=== PATIENT | male | born 1975 | race Caucasian/White ===

== ENCOUNTER 2016-10-08 15:53 | Emergency (ER) | payer BC ==
[2016-10-08] MEDS ORDERED: BACIGUENT PACKET TP ONE (16:00)
[2016-10-08] MEDS ORDERED: XYLOCAINE 1% HCL 20 ML MDV IJ ONE (16:00)
[2016-10-08] MEDS ORDERED: Adacel Vial IM ONE ×2 (16:04→16:05)
[2016-10-08] MEDS ORDERED: XYLOCAINE 1% HCL 20 ML MDV ONE (16:05)
[2016-10-08] MEDS ORDERED: BACIGUENT PACKET ONE (16:05)
--- NOTE | 2016-10-08 16:28 | ERPHSYRPT ---
- History of Present Illness Time Seen by Provider: 10/08/16 15:59 Source: patient, family Patient Subjective Stated Complaint: Pt was using a nail gun and a nail went through his left index finger. Pt states he needs a tetanus shot. Triage Nursing Assessment: Pt alert and oriented x3. skin pink warm and dry. afebrile. small nail in tip of left index finger. radial pulse present and regular. cap refill <3 sec Physician History: CC: nail in finger Hx: 41 y/o healthy male patient was building baby changing table. Using staple gun. Metal nail went into left distal index finger. Hurt too much to pull out. Needs tetanus vaccine. No other injuries. No hx of DM. Occurred: just prior to arrival Severity of Pain-Max: moderate Extremities Pain Location: 2nd finger: left Allergies/Adverse Reactions: No Known Drug Allergies Allergy (Unverified 10/08/16 15:57) Hx Tetanus, Diphtheria Vaccination/Date Given: No Hx Influenza Vaccination/Date Given: No Hx Pneumococcal Vaccination/Date Given: No - Review of Systems Constitutional: No Symptoms Neurological: No Focal Weakness, No Parasthesia - Past Medical History Pertinent Past Medical History: No - Past Surgical History Past Surgical History: Yes Musculoskeletal: Orthopedic Surgery Other Surgical History: tubes in ears - Social History Smoking Status: Never smoker Exposure to second hand smoke: No Drug Use: none Patient Lives Alone: No (, boy baby on the way, works [employer]) - Nursing Vital Signs Nursing Vital Signs: Initial Vital Signs Temperature 98.1 F Temperature Source Oral Pulse Rate 73 Respiratory Rate 16 Blood Pressure [Right Arm] 147/99 Pain Intensity 2 - Physical Exam General Appearance: alert Eyes, Ears, Nose, Throat Exam: moist mucous membranes Cardiovascular/Respiratory Exam: regular rate/rhythm Neuro/Tendon Exam: normal sensation, normal motor functions Mental Status Exam: alert, oriented x 3, cooperative Skin Exam: warm, dry SpO2 Interpretation: normal SpO2: 98 Oxygen Delivery: Room Air Comments: curved metal nail embedded in left distal index finger. Good cap refill. Good ROM. Procedures - Additional Procedures Progress: 3ml 1% plain lidocaine used for left index finger digital block. Cleansed with betadine. Removed nail in toto with hemastats easily. No residual on xray. Wound instr given. Adacel updated. - Course Nursing assessment & vital signs reviewed: Yes Ordered Tests: Active Orders 24 hr Category Date Time Status Wound Care STAT Care 10/08/16 15:59 Active FINGER(S) Stat Exams 10/08/16 16:00 Ordered Medication Summary Discontinued Medications Generic Name Dose Route Start Last Admin Trade Name Ross PRN Reason Stop Dose Admin Bacitracin 0.9 gm 10/08/16 16:00 10/08/16 16:17 Baciguent Packet TP 10/08/16 16:01 0.9 gm STAT ONE Administration Bacitracin Confirm 10/08/16 16:05 Baciguent Packet Administered 10/08/16 16:06 Dose 1 gm .ROUTE .STK-MED ONE Diphtheria/Tetanus/Acell Pertussis 0.5 ml 10/08/16 16:04 Adacel Vial IM 10/08/16 16:05 .ONCE ONE Diphtheria/Tetanus/Acell Pertussis Confirm 10/08/16 16:05 Adacel Vial Administered 10/08/16 16:06 Dose 0.5 ml IM .STK-MED ONE Lidocaine HCl 5 ml 10/08/16 16:00 10/08/16 16:17 Xylocaine 1% Hcl 20 Ml Mdv IJ 10/08/16 16:01 5 ml STAT ONE Administration Lidocaine HCl Confirm 10/08/16 16:05 Xylocaine 1% Hcl 20 Ml Mdv Administered 10/08/16 16:06 Dose 5 ml .ROUTE .STK-MED ONE - Departure Time of Disposition: 16:26 Departure Disposition: Home Clinical Impression: Foreign body of left index finger Condition: Stable Critical Care Time: No Referrals: DOCTOR,NO FAMILY [Primary Care Provider] - Instructions: Removal of Foreign Body From Skin Additional Instructions: LACERATION CARE 1. Do not use peroxide, merthiolate, alcohol, or betadine. 2. Keep wound clean and dry. 3. Change dressing if it becomes wet or soiled. 4. If you must work, wear protective covering. 5. You may return to the emergency department or see your family physician for suture removal. 6. See your family physician or return to the emergency department for any of the following signs or symptoms: A. Redness B. Swelling C. Discolored drainage D. Red streaks E. Elevated temperature F. Other signs of infection Rx keflex. Tylenol or ibuprofen if needed for pain. Prescriptions: Cephalexin Mh 500 mg [Keflex 500 mg] 1 cap PO QID #20 capsule
[2016-10-08 16:58] VITALS: BP 144/86; PULSE 65; O2SAT 99
--- NOTE | 2016-10-08 23:06 | XRAY ---
Indication: Foreign body. Comparison: None 2 projections of the left second digit demonstrates distal soft tissue metallic hook foreign body without bony or articular abnormalities. Follow-up 2 views demonstrates successful foreign body removal.
== END 2016-10-08 16:58 | disposition home or self-care (01) ==
LOC: ED 15:53
DX: S61.241A Puncture wound with foreign body of left index finger without damage to nail, initial encounter (principal); W29.4XXA Contact with nail gun, initial encounter
CPT/HCPCS: 73140; 90471; 90715; 99283; A9270-GY

== ENCOUNTER 2016-12-31 18:37 | Emergency (ER) | payer BC ==
[2016-12-31] MEDS ORDERED: Sodium Chloride 0.9% 1000 ML 1,000 ML ONE ×2 (18:50→19:50)
[2016-12-31] MEDS ORDERED: Sodium Chloride 0.9% 1000 ML 1,000 ML IV STA ×2 (18:53→19:48)
--- NOTE | 2016-12-31 18:53 | ERPHSYRPT ---
- History of Present Illness Time Seen by Provider: 12/31/16 18:49 Historian: patient, family Exam Limitations: no limitations Patient Subjective Stated Complaint: heat exhaustion Triage Nursing Assessment: racing continuous for 2 hours. quit couple of hours ago and when he got off he was weak and leg cramps. skin cool. no pain. 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 Timing/Duration: today, hour(s) Activities at Onset: activity Quality: other (no pain) Abdominal Pain Onset Location: other (no pain) Pain Radiation: other (no pain) Severity of Pain-Max: none Severity of Pain-Current: none Modifying Factors: Improves With: nothing Associated Symptoms: nausea, vomiting Previous symptoms: no prior history Allergies/Adverse Reactions: No Known Drug Allergies Allergy (Unverified 12/31/16 18:42) Home Medications: No Home Meds 0 b PO 5XD 12/31/16 [History] Hx Tetanus, Diphtheria Vaccination/Date Given: Yes Hx Influenza Vaccination/Date Given: Yes Hx Pneumococcal Vaccination/Date Given: No Immunizations Up to Date: Yes - Review of Systems Constitutional: Weakness, No Fever, No Chills Eyes: No Symptoms Ears, Nose, & Throat: No Symptoms Respiratory: No Cough, No Dyspnea Cardiac: No Chest Pain, No Edema, No Syncope Abdominal/Gastrointestinal: Nausea, Vomiting, No Abdominal Pain, No Diarrhea Genitourinary Symptoms: No Dysuria Musculoskeletal: No Back Pain, No Neck Pain Skin: No Rash Neurological: No Dizziness, No Focal Weakness, No Sensory Changes Psychological: No Symptoms Endocrine: No Symptoms All Other Systems: Reviewed and Negative - Past Medical History Pertinent Past Medical History: No - Past Surgical History Past Surgical History: Yes Musculoskeletal: Orthopedic Surgery Other Surgical History: tubes in ears - Social History Smoking Status: Never smoker Exposure to second hand smoke: No Drug Use: none Patient Lives Alone: No - Nursing Vital Signs Nursing Vital Signs: Initial Vital Signs Temperature 97.4 F Temperature Source Oral Pulse Rate 89 Respiratory Rate 16 Blood Pressure [Right Arm] 132/83 Pain Intensity 0 - Physical Exam General Appearance: no apparent distress, alert Eye Exam: PERRL/EOMI, eyes nml inspection Ears, Nose, Throat Exam: normal ENT inspection, pharynx normal, moist mucous membranes Neck Exam: normal inspection, non-tender, supple, full range of motion Respiratory Exam: normal breath sounds, lungs clear, No respiratory distress Cardiovascular Exam: regular rate/rhythm, normal heart sounds Gastrointestinal/Abdomen Exam: soft, No tenderness, No mass Rectal Exam: deferred Back Exam: normal inspection, normal range of motion, No CVA tenderness, No vertebral tenderness Extremity Exam: normal inspection, normal range of motion, pelvis stable Neurologic Exam: alert, oriented x 3, cooperative, normal mood/affect, nml cerebellar function, sensation nml, No motor deficits Skin Exam: normal color, warm, dry - Course Nursing assessment & vital signs reviewed: Yes Ordered Tests: Active Orders 24 hr Category Date Time Status IV Insertion STAT Care 12/31/16 18:48 Active IV Insertion STAT Care 12/31/16 18:53 Active PO Fluid Challenge STAT Care 12/31/16 18:57 Active CBC W DIFF Stat Lab 12/31/16 18:58 Completed CK-Creatinine Phosphokinase Stat Lab 12/31/16 18:58 Completed CMP Stat Lab 12/31/16 18:58 Completed Lactic Acid Stat Lab 12/31/16 19:05 Completed Medication Summary Discontinued Medications Generic Name Dose Route Start Last Admin Trade Name Freq PRN Reason Stop Dose Admin Sodium Chloride Confirm 12/31/16 18:50 Sodium Chloride 0.9% 1000 Ml Administered 12/31/16 18:51 Dose 1,000 mls @ ud .ROUTE .STK-MED ONE Sodium Chloride 1,000 mls @ 999 mls/hr 12/31/16 18:53 12/31/16 18:58 Sodium Chloride 0.9% 1000 Ml IV 12/31/16 19:53 999 mls/hr .Q1H1M STA Administration Sodium Chloride 1,000 mls @ 999 mls/hr 12/31/16 19:48 12/31/16 19:50 Sodium Chloride 0.9% 1000 Ml IV 12/31/16 20:48 999 mls/hr .Q1H1M STA Administration Sodium Chloride Confirm 12/31/16 19:50 Sodium Chloride 0.9% 1000 Ml Administered 12/31/16 19:51 Dose 1,000 mls @ ud .ROUTE .STK-MED ONE Ondansetron HCl 4 mg 12/31/16 18:55 12/31/16 18:58 Zofran 4 Mg/2 Ml Vial IV 12/31/16 18:56 4 mg STAT ONE Administration Ondansetron HCl Confirm 12/31/16 18:57 Zofran 4 Mg/2 Ml Vial Administered 12/31/16 18:58 Dose 4 mg .ROUTE .STK-MED ONE Lab/Rad Data: Laboratory Result Diagrams 12/31/16 18:58 12/31/16 18:58 Laboratory Results 12/31/16 12/31/16 12/31/16 Range/Units 19:05 18:58 18:58 WBC (4.0-10.5) K/mm3 RBC (4.1-5.6) M/mm3 Hgb (12.5-18.0) gm/dl Hct (42-50) % MCV (78-100) fl MCH (26-32) pg MCHC (32-36) g/dl RDW (11.5-14.0) % Plt Count (150-450) K/mm3 MPV (6-9.5) fl Gran % (36.0-66.0) % Lymphocytes % (24.0-44.0) % Monocytes % (0.0-12.0) % Eosinophils % (0.00-5.0) % Basophils % (0.0-0.4) % Basophils # (0-0.4) Sodium 144 (136-145) mEq/L Potassium 4.1 (3.5-5.1) mEq/L Chloride 106 (98-107) mEq/L Carbon Dioxide 23.4 (21-32) mEq/L Anion Gap 19.1 H (5-15) MEQ/L BUN 28 H (9-20) mg/dL Creatinine 1.59 H (0.55-1.30) mg/dl Estimated GFR 52 ML/MIN Glucose 107 (70-110) MG/DL Lactic Acid 1.9 (0.4-2.0) Calcium 10.6 H (8.5-10.1) mg/dL Total Bilirubin 0.80 (0.2-1.0) mg/dL AST 26 (15-37) U/L ALT 23 (12-78) U/L Alkaline Phosphatase 69 (46-116) U/L Creatine Kinase 287 (39-308) U/L Serum Total Protein 8.8 H (6.4-8.2) gm/dL Albumin 5.1 H (3.4-5.0) g/dL 12/31/16 Range/Units 18:58 WBC 11.4 H (4.0-10.5) K/mm3 RBC 5.85 H (4.1-5.6) M/mm3 Hgb 16.9 (12.5-18.0) gm/dl Hct 48.9 (42-50) % MCV 83.6 (78-100) fl MCH 28.8 (26-32) pg MCHC 34.6 (32-36) g/dl RDW 12.8 (11.5-14.0) % Plt Count 178 (150-450) K/mm3 MPV 10.2 H (6-9.5) fl Gran % 85.7 H (36.0-66.0) % Lymphocytes % 9.6 L (24.0-44.0) % Monocytes % 4.4 (0.0-12.0) % Eosinophils % 0.1 (0.00-5.0) % Basophils % 0.2 (0.0-0.4) % Basophils # 0.02 (0-0.4) Sodium (136-145) mEq/L Potassium (3.5-5.1) mEq/L Chloride (98-107) mEq/L Carbon Dioxide (21-32) mEq/L Anion Gap (5-15) MEQ/L BUN (9-20) mg/dL Creatinine (0.55-1.30) mg/dl Estimated GFR ML/MIN Glucose (70-110) MG/DL Lactic Acid (0.4-2.0) Calcium (8.5-10.1) mg/dL Total Bilirubin (0.2-1.0) mg/dL AST (15-37) U/L ALT (12-78) U/L Alkaline Phosphatase (46-116) U/L Creatine Kinase (39-308) U/L Serum Total Protein (6.4-8.2) gm/dL Albumin (3.4-5.0) g/dL - Progress Progress: improved, re-examined Progress Note: 12/31/16 19:58 pt feeling much improved and debbie PO now; renal fxn prob on basis of dehydration but advised pt to have these rechecked with PCP. 12/31/16 20:52 no further weakness on exam or symptoms.. Counseled pt/family regarding: lab results, diagnosis, need for follow-up - Departure Time of Disposition: 20:49 Departure Disposition: Home Clinical Impression: Dehydration, moderate, Heat exhaustion Condition: Good Critical Care Time: No Instructions: Heat Exhaustion and Heat Stroke Additional Instructions: followup with your Dr to recheck the kidney functions which may just be temporary from the dehydration. return meantime if further symptoms or concerns. go with just liquids and crackers tonight and progress to real food tomorrow. also have BP rechecked with your Dr.
[2016-12-31] MEDS ORDERED: Zofran 4 MG/2 ML VIAL IV ONE (18:55)
[2016-12-31] MEDS ORDERED: Zofran 4 MG/2 ML VIAL ONE (18:57)
[2016-12-31 19:11] LABS: BASOPHIL % 0.2 % (0.0-0.4); Eosinophil % 0.1 % (0.00-5.0); Granulocytes % 85.7 % (36.0-66.0); Lymphocytes % 9.6 % (24.0-44.0); Mean Cell Volume 83.6 fl (78-100); Mean Platelet Volume 10.2 fl (6-9.5); Monocytes % 4.4 % (0.0-12.0); Platelet Count 178 K/mm3 (150-450); Red Blood Count 5.85 M/mm3 (4.1-5.6); Red Cell Distribution Width 12.8 % (11.5-14.0); White Blood Count 11.4 K/mm3 (4.0-10.5)
[2016-12-31 19:13] LABS: Mean Corpuscular Hemoglobin 28.8 pg (26-32)
[2016-12-31 19:45] LABS: ALBUMIN 5.1 g/dL (3.4-5.0); ANION GAP 19.1 MEQ/L (5-15); BILIRUBIN,TOTAL 0.8 mg/dL (0.2-1.0); Carbon Dioxide 23.4 mEq/L (21-32); Potassium 4.1 mEq/L (3.5-5.1); Total Protein 8.8 gm/dL (6.4-8.2)
[2016-12-31 21:09] VITALS: BP 129/70; PULSE 78; O2SAT 100
== END 2016-12-31 21:09 | disposition home or self-care (01) ==
LOC: ED 18:37
DX: E86.0 Dehydration (principal); T67.5XXA Heat exhaustion, unspecified, initial encounter
CPT/HCPCS: 36000; 36415; 80053; 82550; 83605; 85025; 96360; 96361; 96374; 99284; J2405